=== PATIENT | female | born 2000 | race Caucasian/White ===

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

== ENCOUNTER 2019-01-10 15:51 | Emergency (ER) | payer MEDICAID, SELFPAY ==
[2019-01-10 15:53] VITALS: BP 126/74; PULSE 78; RESP 15; TEMP 37; O2SAT 100; BMI 19.9
--- NOTE | 2019-01-10 17:32 | EKG12_ITS ---
Test Reason : CP Blood Pressure : / mmHG Vent. Rate : 091 BPM Atrial Rate : 091 BPM P-R Int : 126 ms QRS Dur : 078 ms QT Int : 326 ms P-R-T Axes : 074 086 062 degrees QTc Int : 400 ms Normal sinus rhythm Possible Left atrial enlargement Borderline ECG Confirmed by JELLY CHRISTENSEN, TANI ([id number]), supervising film or videotape editor ILENE MOORE ([id number] on 01/12/2019 10:06:30 AM Referred By: ISABEL Confirmed By:TANI REAVES MD
--- NOTE | 2019-01-10 17:35 | NURSING ---
NO OLD EKGS
== END 2019-01-10 18:00 ==
LOC: ED 18:06
PROVIDERS: Emergency Provider Emergency Medicine; Family Provider Family Medicine; PCP Family Medicine
DX: R07.9 Chest pain, unspecified (principal)
CPT/HCPCS: 93005

== ENCOUNTER → 2019-12-23 14:47 | Outpatient (CLI) | payer MEDICAID, SELFPAY ==
[2019-12-23 17:36] LABS: Chlamydia Trachomatis by PCR Negative (Negative); Neisserai gonorrhoeae by PCR Negative (Negative); Probe Check PASS; Sample Adequacy Control PASS; Specimen Processing Control PASS
== END ==
PROVIDERS: PCP Family Medicine; Referring Provider Advanced Practice Midwife; Visit Provider Advanced Practice Midwife
DX: Z11.3 Encounter for screening for infections with a predominantly sexual mode of transmission (principal)
CPT/HCPCS: 87491; 87591

== ENCOUNTER → 2021-04-08 16:19 | Outpatient (CLI) | payer MEDICAID, OTHER, SELFPAY ==
[2020-08-16 13:33] VITALS: BMI 19.9
[2021-04-11 16:32] LABS: HPV Reflexed? NOT INDICATED
[2021-04-12 03:07] LABS: Chlamydia By Nucleic Acid AMP Negative (Negative)
[2021-04-12 08:28] LABS: Gonococcus By Nucleic Acid AMP Negative (Negative)
== END ==
PROVIDERS: PCP Family Medicine; Visit Provider Student in an Organized Health Care Education/Training Program
DX: Z12.4 Encounter for screening for malignant neoplasm of cervix (principal); Z11.3 Encounter for screening for infections with a predominantly sexual mode of transmission
CPT/HCPCS: 87491; 87591; 88175; G0145

== ENCOUNTER 2022-05-28 20:52 | Emergency (ER) | payer OTHER, MEDICAID, SELFPAY ==
[2022-05-28 20:53] VITALS: BP 127/94; PULSE 126; RESP 15; TEMP 36.5; O2SAT 99; BMI 17.6
[2022-05-28 21:23] LABS: Mucous, Urine 0 SEEN /hpf (<or=2+); White Blood Cells 0 SEEN /hpf (0-5)
[2022-05-28 21:29] LABS: Color, Urine Yellow (Yellow); Glucose, Dipstick Normal (Normal); Ketone-Dipstick 5 mg/dl (Negative); Leukocyte Esterase-Dipstick Negative /ul (Negative); Nitrite-Dipstick Negative (Negative); Occult Blood-Urine 10 /ul (Negative); Protein-Dipstick Negative (Negative); Specific Gravity, Urine 1.025 (1.002-1.030); Urine Bilirubin Dipstick Negative (Negative); Urine Clarity Clear (Clear); Urine Urobilinogen Normal (Normal)
[2022-05-28 21:40] LABS: Bacteria 2+ /hpf (None Seen); Red Blood Cells-Urine 0-5 SEEN /hpf (0-5); Squamous Epithelial Cells - UA 0-5 SEEN /hpf (5-10)
--- NOTE | 2022-05-28 22:12 | ED.VIS.BACK ---
HPI History of Present Illness Chief Complaint: Flank Pain Detail of Chief Complaint: Right lower back pain Informant: patient Onset/Context/Timing Onset: Days Context: Gradual Onset Timing: Continuous Quality: Sharp Location: Lumbar Current Severity: Moderate Maximum Severity: Moderate Worsened by: improves with Movement Relieved by: Remaining Still Associated Symptoms Associated Symptoms: Negative for Numbness, Tingling, Radiation to Right Leg, Radiation to Left Leg, Fever, Abdominal Pain, Dysuria, Unable to Ambulate, Unable to Transfer, Urinary Retention, Urinary Incontinence, Constipation or Fecal Incontinence Narrative Narrative: 21-year-old female no seen past medical history. Prior tonsillectomy and cholecystectomy. Complaining of right lower back pain that started on Thursday morning. She denies any fall injury or trauma. She denies doing anything to aggravate her back. She has never had back surgery. She said is worse if she is seated or worse if she is lifting her legs. There is no radiculopathy radiating into her buttocks or leg. She denies any fever or chills. No dysuria or hematuria. She is never had a kidney stone. Prior similar symptoms: No Recent Illness/Hospitalization: No PFSH PFS Medical History GERD (gastroesophageal reflux disease) no medical history Home Medications Controll 1 tab PO DAILY 05/15/17 [History Last Taken Unknown] pantoprazole 40 mg tablet,delayed release 40 mg PO DAILY 01/10/19 [History Last Taken Unknown] cyclobenzaprine 5 mg tablet 5 tab PO TID PRN Muscle Spasm 05/28/22 [History Last Taken Unknown] naproxen 500 mg tablet 500 tab PO BID 05/28/22 [History Last Taken Unknown] ondansetron 8 mg disintegrating tablet 8 tab PO Q8 PRN Nausea 05/28/22 [History Last Taken Unknown] oxycodone-acetaminophen 5 mg-325 mg tablet 1 tab PO Q6H PRN Pain 05/28/22 [History Last Taken Unknown] pantoprazole 40 mg tablet,delayed release mg PO 05/28/22 [History Last Taken Unknown] Allergy/AdvReac Type Severity Reaction Status Date / Time No Known Allergies Allergy Verified 05/28/22 20:56 Social History Smoking Status: Never smoker ROS ROS ED ROS Narrative Right lower back pain. Review of Systems ROS Unobtainable: Denies due to encephalopathy Constitutional Constitutional ED: Denies chills Eyes Eyes: Denies blurry vision Cardiovascular Cardiovascular: Denies chest pain Respiratory/Chest Respiratory/Chest: Denies dyspnea Gastrointestinal Gastrointestinal: Denies abdominal pain, constipation, diarrhea, melena, nausea or vomiting Genitourinary Genitourinary ED: Denies dysuria or hematuria Musculoskeletal Musculoskeletal: Reports back pain; Denies arthralgias Integumentary Denies abscess Neurologic Neurologic: Denies headache(s) Psychiatric Psychiatric: Denies anxiety Endocrine Endocrinology: Denies cold intolerance Hematologic/Lymphatic Hematologic/Lymphatic: Denies easy bleeding Allergic/Immunologic Allergic/Immunologic ED: Denies mouth swelling EXAM Physical Exam Narrative Exam Narrative: 19-year-old female who I have right lower back pain. Vital signs stable afebrile. H EENT exam unremarkable. Neck nontender. Lungs clear to auscultation. Heart tachycardic no murmur. Abdomen soft nontender normal bowel sounds no peritoneal signs. No right upper or lower quadrant tenderness. Moving all 4 extremities. Neurovascular intact. 5/5 mail distribution scheme examiner strength. Dorsi plantarflexion intact. Able to lift either leg. When she lifts her right leg it pulls on her back. Negative straight leg raise. No radiculopathy. No cauda equina or saddle anesthesia. No weakness. Back exam spine nontender right paralumbar soft tissue tenderness consistent with muscle spasm. Left side nontender. Both SI joints are nontender. Neurologically she is awake and alert. No focal motor or sensory deficits. Normal neurologic exam. Const Vital Signs: 05/28/22 20:53 Temperature 97.7 F L Temperature Source Temporal Pulse Rate 126 H Respiratory Rate 15 Blood Pressure 127/94 H Blood Pressure Mean 105 Pulse Ox 99 Oxygen Delivery Method Room Air Positive well nourished and well developed; Negative for obese, cachectic, contractures or unkempt General Appearance ED: well developed; Negative for unkempt, cachectic or contractures Nutritional Appearance: Negative for cachectic or obese HEENT Reports moist mucous membranes; Denies dry mucous membranes Negative for trauma Mouth ED: No dry mucous membranes Mouth: No dry mucous membranes Eyes PERRL and EOMs intact bilaterally General Eye ED: Negative for pale conjunctiva Neck no lymphadenopathy, supple and no JVD General: Negative for tenderness Thyroid: Negative for other Resp normal respiratory effort and clear to auscultation bilaterally Effort and Inspection: Negative for pain with movement Auscultation: Negative for rales, rhonchi, wheezes or diminished lung sounds Cardio regular rhythm, S1 normal heart sound, S2 normal heart sound and no murmurs; Negative for regular rate Rate: tachycardic GI normal to inspection, nondistended, normoactive bowel sounds, soft to palpation, non-tender, non-distended and no masses Inspection: Negative for abdominal distention Auscultation: Negative for hyperactive bowel sounds Palpation: Negative for tender, guarding, hepatomegaly, splenomegaly, mass, pulsatile mass or rebound tenderness present Back/Spine normal to inspection; Negative for no thoracic nor lumbar tenderness Back/Spine Narrative: Right-sided paralumbar soft tissue tenderness consistent with paralumbar muscle spasm. Spine itself is nontender. General Back: Negative for CVA tenderness Cervical Spine: Negative for cervical spine tenderness Thoracic Spine / Upper Back: paraspinal muscle tenderness Lumbar Spine / Lower Back: Negative for straight leg raise negative bilaterally or straight leg raise positive right Extremity normal to inspection General Extremety ED: Negative for edema General Extremity: Negative for edema Neuro oriented x3 and no sensory deficits noted Sensorium / Orientation: alert; Negative for confused, lethargic or stuporous Sensory Exam: No other Motor Exam: strength 5/5 throughout Psych mental status grossly normal Appearance: Negative for unkempt Attitude: No agitated Mood & Affect: Negative for depressed Skin no rashes or lesions noted and no wounds General Skin Exam: Negative for jaundice Lesions: No lesion noted Rashes: No rashes noted Trauma: Negative for abrasion Wounds: Negative for wounds noted MDM MDM MDM Narrative Medical decision making narrative: 21-year-old female with right lower back pain that on exam is consistent with paralumbar muscle spasm. She has no urinary symptoms. She is never had a kidney stone. Her abdomen is benign. She has had no trauma. Discussed with her and her mom I think this is musculoskeletal back pain muscle spasm. I do not think it is a disc. I do not think it is a kidney stone. She does not require x-rays or imaging. Nursing did a UA which was negative. She will be treated with IM Toradol here. She has both narcotic pain medication at home and a muscle relaxant. Massage, hot shower, warm bath, muscle relaxant and follow-up if not improving. Lab Data Attestation: I reviewed the patient's lab results. Lab results narrative: Urinalysis negative. No infection. No signs of kidney stone. No blood. Labs: Laboratory Results - last 24 hr 05/28/22 21:15 Urine Color Yellow Urine Clarity Clear Urine pH 5.0 Ur Specific [place] 1.025 Urine Protein Negative Urine Glucose (UA) Normal Urine Ketones 5 H Urine Occult Blood 10 H Urine Nitrite Negative Urine Bilirubin Negative Urine Urobilinogen Normal Ur Leukocyte Esterase Negative Urine RBC 0-5 SEEN Urine WBC 0 SEEN Ur Squamous Epith Cells 0-5 SEEN Urine Bacteria 2+ Urine Mucus 0 SEEN Discharge Plan Triage Chief Complaint: Flank Pain ED Provider: Loi Canseco Dx/Rx/DC Orders Clinical Impression: Lumbar paraspinal muscle spasm Instructions: ED Back Spasm, No Trauma Prescriptions: No Action Controll 1 tab PO DAILY pantoprazole 40 MG tablet 40 mg PO DAILY ondansetron 8 mg tablet,disintegrating 8 tab PO Q8 PRN (Reason: Nausea) oxycodone-acetaminophen 5-325 mg tablet 1 tab PO Q6H PRN (Reason: Pain) Label Comments: TAKE 1 TABLET BY MOUTH EVERY 6 HOURS NEEDED FOR SEVERE PAIN pantoprazole 40 mg tablet,delayed release (DR/EC) PO Label Comments: TAKE 1 TABLET BY MOUTH ONCE DAILY naproxen 500 mg tablet 500 tab PO BID Label Comments: TAKE 1 TABLET BY MOUTH TWICE DAILY NEEDED FOR JOINT PAIN cyclobenzaprine 5 mg tablet 5 tab PO TID PRN (Reason: Muscle Spasm) Primary Care Provider: Evelyn Her NP Referrals: Evelyn Her NP, [employer] [Primary Care Provider] - 3-5 Days if not improving Activity Restrictions/Additional Instructions: Shower, warm bath or hot tub. Massage. Motrin 600 mg 3 times a day. Tylenol in between. Usual muscle relaxant. To help with muscle spasm. Your pain medication as needed. This should progressively start improving if not follow-up with your primary care provider for further evaluation or return. Disposition Disposition: Home, Self Care
[2022-05-28] MEDS: Ketorolac 60 MG/2 ML Vial IM (22:29)
== END 2022-05-28 22:44 | disposition home or self-care (01) ==
PROVIDERS: Emergency Provider Emergency Medicine; PCP Nurse Practitioner Family; Visit Provider Emergency Medicine
DX: M62.830 Muscle spasm of back (principal); R10.9 Unspecified abdominal pain; M54.50 Low back pain, unspecified; K21.9 Gastro-esophageal reflux disease without esophagitis
CPT/HCPCS: 81001; 96372; 99282

== ENCOUNTER → 2023-01-07 | Outpatient (CLI) | payer MEDICAID, SELFPAY ==
[2023-01-07 15:51] LABS: Estradiol 63.8 pg/mL; Follicle Stimulating Hormone 5.5 mIU/mL; Luteinizing Hormone 7.5 mIU/mL; Prolactin 8.7 ng/mL; T4 Free Direct 1.08 ng/dL (0.76-1.46); Thyroid Stim Hormone (TSH) 2.58 uIU/mL (0.358-3.74)
== END | disposition home or self-care (01) ==
LOC: WOBLAB 14:01
PROVIDERS: PCP Nurse Practitioner Family; Visit Provider Student in an Organized Health Care Education/Training Program
DX: N93.9 Abnormal uterine and vaginal bleeding, unspecified (principal)
CPT/HCPCS: 36415; 82670; 83001; 83002; 84144; 84146; 84439; 84443